=== PATIENT | female | born 1995 | race Two or more races ===

== ENCOUNTER 2020-01-22 08:28 | Emergency (ER) | payer SELFPAY ==
[~2020-01-22] VITALS: Ht 152.4 cm; Wt 58.0 kg
[2020-01-22] MEDS ORDERED: IBUPROFEN 600MG TABLET PO ONE (09:00)
[2020-01-22 09:09] VITALS: BP 129/89
== END 2020-01-22 09:11 | disposition home or self-care (01) ==
LOC: ER 08:28
DX: M54.9 Dorsalgia, unspecified (principal); I10 Essential (primary) hypertension; V49.88XA Car occupant (driver) (passenger) injured in other specified transport accidents, initial encounter; Y93.89 Activity, other specified; Y92.89 Other specified places as the place of occurrence of the external cause; Y99.8 Other external cause status
CPT/HCPCS: 99283